=== PATIENT | male | born 1970 | race Caucasian/White ===

== ENCOUNTER 2023-04-19 17:20 | Emergency (ER) | payer BC ==
[2023-04-19 18:02] LABS: BASOPHILS ABSOLUTE AUTO 0.02 K/mm3 (0.01-0.08); BASOPHILS PERCENT AUTO 0.3 % (0.1-1.2); EOSINOPHILS ABSOLUTE AUTO 0.08 K/mm3 (0.04-0.54); HEMATOCRIT 44.2 % (40.1-51.0); IMMATURE GRAN ABSOLUTE AUTO 0.02 K/mm3 (0.00-0.10); IMMATURE GRAN PERCENT AUTO 0.3 % (<=1.0); MEAN CORPUSCULAR HEMOGLOBIN 30.2 pg (25.7-32.2); MEAN CORPUSCULAR HGB CONC 33.9 g/dl (32.2-35.5); MEAN CORPUSCULAR VOLUME 89.1 fl (79.0-92.2); MEAN PLATELET VOLUME 9.6 fl (9.4-12.3); MONOCYTES ABSOLUTE AUTO 0.49 K/mm3 (0.30-0.82); MONOCYTES PERCENT AUTO 6.3 % (5.3-12.2); NEUTROPHILS ABSOLUTE AUTO 5.08 K/mm3 (1.78-5.38); NEUTROPHILS PERCENT AUTO 65.1 % (34.0-67.9); PLATELET COUNT,PLT 288 K/mm3 (163-337); RED BLOOD CELL COUNT 4.96 M/mm3 (4.63-6.08); WHITE BLOOD CELL COUNT,WBC 7.79 K/mm3 (4.23-9.07)
[2023-04-19 18:39] LABS: ALBUMIN 3.7 g/dl (3.4-5.0); ANION GAP 17.9 (5-15); BILIRUBIN TOTAL 0.6 mg/dL (0.2-1.0); BUN/CREATININE RATIO 21.4 (14-18); CALCIUM 8.5 mg/dL (8.5-10.1); CREATININE 0.7 mg/dL (0.7-1.3); EST CRCL DRUG DOSING (CG) 145.15 mL/min; ETHANOL BLOOD MEDICAL 0.21 gm% (0.00); MAGNESIUM 1.9 mg/dL (1.8-2.4); POTASSIUM,K 3.9 mEq/L (3.5-5.1); PROTEIN TOTAL,TP 7.5 g/dl (6.4-8.2)
[2023-04-19 18:43] LABS: INR 0.96; PROTHROMBIN TIME 10.3 SECONDS (9.7-12.0)
[2023-04-19 18:44] LABS: PTT,PARTIAL THROMBOPLSTIN TIME 24.9 SECONDS (21.7-31.4)
[2023-04-19] MEDS ORDERED: Acetaminophen 325 MG Tab PO ONE (19:46)
== END 2023-04-19 20:13 ==
LOC: JD.ED 17:20
DX: S06.30AA Unspecified focal traumatic brain injury with loss of consciousness status unknown, initial encounter (principal); S02.0XXA Fracture of vault of skull, initial encounter for closed fracture; F10.929 Alcohol use, unspecified with intoxication, unspecified; W18.30XA Fall on same level, unspecified, initial encounter
CPT/HCPCS: 36415; 70450; 80053; 80307; 83735; 85025; 85610; 85730; 99285; A9270